=== PATIENT | female | born 1965 ===

== ENCOUNTER 2019-03-12 16:23 | Emergency (ER) | payer OTHER ==
[2019-03-12] MEDS ORDERED: Acetaminophen 500 MG TAB ONE (17:32)
[2019-03-12] MEDS ORDERED: Ondansetron ODT 4 MG TAB ONE (17:36)
== END 2019-03-12 18:08 | disposition home or self-care (01) ==
LOC: ERS 16:23
DX: R50.9 Fever, unspecified (principal); F17.210 Nicotine dependence, cigarettes, uncomplicated
CPT/HCPCS: 87804; 99283; Q0162